=== PATIENT | female | born 1970 | race Asian ===

== ENCOUNTER 2017-04-25 16:31 | Emergency (ER) | payer OTHER ==
[~2017-04-25] VITALS: Ht 154.9 cm; Wt 52.3 kg
[~2017-04-25 16:31] MED LIST: METOPROLOL25 MG PO; ZESTRIL 10MG10 MG PO
[2017-04-25 16:33] VITALS: TEMP 98.6
[2017-04-25 17:37] LABS: PH 5 (5-8); URINE APPEARANCE Hazy; URINE BACTERIA Rare /hpf; URINE BILIRUBIN Negative (NEGATIVE); URINE BLOOD 2+ (NEGATIVE); URINE COLOR Yellow; URINE GLUCOSE Negative (NEGATIVE); URINE KETONE 2+ (NEGATIVE); URINE UROBILINOGEN Negative (NEGATIVE)
[2017-04-25 18:29] LABS: BASO % 0.7 % (0.0-2.0); EOS # 0.1 (0.0-0.7); EOS % 1.6 % (0-4.0); GRAN # 2.2 (1.4-6.5); GRAN % 51.3 % (42.2-75.2); HEMATOCRIT 39.8 % (37.0-47.0); HEMOGLOBIN 13.4 g/dl (12.5-16.0); LYMPH # 1.4 (1.2-3.4); LYMPH % 32.3 % (20.0-51.0); MEAN CELL VOLUME 88 fl (80.0-100.0); MEAN CORPUSCULAR HEMOGLOBIN 30 pg (27.0-31.0); MEAN CORPUSCULAR HGB CONC 34 g/dl (33.0-37.0); MONO # 0.6 (0.1-0.6); MONO % 13.9 % (1.7-9.3); PLATELET COUNT 236 K/mm3 (130-400); RED BLOOD COUNT 4.51 M/mm3 (4.10-5.30); REDCELL DISTRIBUTION WIDTH-CV 12.1 % (11.5-14.5); WHITE BLOOD COUNT 4.3 K/mm3 (4.8-10.8)
[2017-04-25 18:36] LABS: ADJUSTED CALCIUM 8.7 mg/dL (8.4-10.2); ALBUMIN 4.1 gm/dL (3.5-5.0); BILIRUBIN,TOTAL 0.8 mg/dL (0.0-1.0); CALCIUM 8.8 mg/dL (8.4-10.2); CREATININE, serum 0.61 mg/dL (0.52-1.25); TOTAL PROTEIN 7.6 gm/dL (6.4-8.2)
[2017-04-25] MEDS ORDERED: ZOFRAN ODT4 MG PO (18:59)
[2017-04-25 19:50] VITALS: BP 128/72; PULSE 75
== END 2017-04-25 19:51 | disposition home or self-care (01) ==
LOC: COL.ER 16:31
PROVIDERS: Nurse Practitioner
DX: R11.2 Nausea with vomiting, unspecified (principal); I10 Essential (primary) hypertension
CPT/HCPCS: J2405; J2550; J7030